=== PATIENT | female | born 1990 | race Two or more races ===

== ENCOUNTER 2017-08-14 10:42 | Outpatient (CLI) | payer OTHER ==
[~2017-08-14 10:42] MED LIST: DICY20TA PO; IOPHEN-C NR LI473 ML PO; PREDNISONE10 MG PO; PROBIOTIC & AC1 EACH PO; PROVENTIL3 ML/2.5 M IH; ZANTAC300 MG PO; ZITHROMAX TRI-500 MG PO; ZITHROMAX500 MG PO
== END 2017-08-14 11:03 | disposition home or self-care (01) ==
LOC: LAB 10:42
DX: R53.1 Weakness (principal); E03.9 Hypothyroidism, unspecified; R42 Dizziness and giddiness; R82.79 Other abnormal findings on microbiological examination of urine; Z00.00 Encounter for general adult medical examination without abnormal findings; E78.2 Mixed hyperlipidemia; N39.0 Urinary tract infection, site not specified; Z11.4 Encounter for screening for human immunodeficiency virus [HIV]; E55.9 Vitamin D deficiency, unspecified; Z21 Asymptomatic human immunodeficiency virus [HIV] infection status; R79.9 Abnormal finding of blood chemistry, unspecified; R79.89 Other specified abnormal findings of blood chemistry

== ENCOUNTER 2017-10-01 20:24 | Emergency (ER) | payer OTHER ==
[~2017-10-01] VITALS: Ht 160 cm; Wt 63.5 kg
[2017-10-03] MEDS ORDERED: PROTONIX40 MG PO (06:36)
[2017-10-03] MEDS ORDERED: CARAFATE1 GM/10 ML PO (06:36)
[2017-10-03] MEDS ORDERED: PEPCID40 MG PO (06:36)
== END 2017-10-02 06:01 | disposition home or self-care (01) ==
LOC: ER 20:24
DX: B34.9 Viral infection, unspecified (principal)

== ENCOUNTER 2017-10-02 20:45 | Emergency (ER) | payer OTHER ==
[~2017-10-02] VITALS: Ht 160 cm; Wt 63.5 kg
[2017-10-03] MEDS ORDERED: PROTONIX40 MG PO (06:36)
[2017-10-03] MEDS ORDERED: PEPCID40 MG PO (06:36)
[2017-10-03] MEDS ORDERED: CARAFATE1 GM/10 ML PO (06:36)
== END 2017-10-03 06:51 | disposition home or self-care (01) ==
LOC: ER 20:45
DX: K29.70 Gastritis, unspecified, without bleeding (principal)

== ENCOUNTER 2020-11-02 05:27 | Day surgery (SDC) | payer OTHER ==
[~2020-11-02 05:27] MED LIST changes: +CARAFATE1 GM/10 ML PO; +PEPCID40 MG PO; +PROTONIX40 MG PO
== END 2020-11-02 10:45 | disposition home or self-care (01) ==
LOC: CIR.AMB 05:27
PROVIDERS: ATTEND Obstetrics & Gynecology
DX: N87.1 Moderate cervical dysplasia (principal); N72 Inflammatory disease of cervix uteri; Z20.822 Contact with and (suspected) exposure to COVID-19